=== PATIENT | male | born 1965 | race Caucasian/White ===

== ENCOUNTER 2019-02-06 10:49 | Emergency (ER) | payer OTHER ==
--- NOTE | 2019-02-06 11:49 | ED ---
General Adult HPI <Jose Haile - Last Filed: 02/06/19 15:32> - General Source: patient, RN notes reviewed Mode of arrival: wheelchair <Jose Neal - Last Filed: 02/06/19 15:42> - General Chief complaint: Psychiatric Symptoms Stated complaint: Mental Health Time Seen by Provider: 02/06/19 11:15 - History of Present Illness Initial comments: Wesly is a 53-year-old male with a past medical history of anxiety, depression, panic disorder, bipolar disorder who presents to the emergency department for a chief complaint of panic attack. Patient states that he was withdrawn yesterday and spent the whole day sleeping. States that this morning he started to feel anxious and started to have a panic attack. Patient did take his prescribed Xanax but this did not help. Panic attack eventually subsided however patient wanted to be evaluated. States that over the past 2 months he has been very anxious and has had decreased stability in his life. Patient states his son recently moved in with him and has been stressful. States that he does not feel his medications are controlling his bipolar disorder because of the instability in his life now. He is denying any suicidal thoughts or thoughts of harming himself. Patient has no other complaints at this time including shortness of breath, chest pain, abdominal pain, nausea or vomiting, headache, or visual changes. (Jose Neal) - Related Data Home Medications Medication Instructions Recorded Confirmed ALPRAZolam [Xanax] 1 mg PO TID PRN 02/06/19 02/06/19 Aspirin EC [Ecotrin Low Dose] 81 mg PO DAILY 02/06/19 02/06/19 HYDROcodone/APAP 7.5-325MG [[place] 1 tab PO DAILY PRN 02/06/19 02/06/19 7.5-325] Loratadine [Claritin] 10 mg PO DAILY 02/06/19 02/06/19 Losartan/Hydrochlorothiazide 1 tab PO DAILY 02/06/19 02/06/19 [Losartan-Hctz 100-25 mg Tab] Multivitamins, Thera [Multivitamin 1 tab PO DAILY 02/06/19 02/06/19 (formulary)] OXcarbazepine 1,200 mg PO BID 02/06/19 02/06/19 [place]-3 Fatty Acids/Fish Oil [Fish 1 cap PO DAILY 02/06/19 02/06/19 Oil 1,000 mg Softgel] Omeprazole 20 mg PO DAILY 02/06/19 02/06/19 Pravastatin Sodium [Pravachol] 40 mg PO HS 02/06/19 02/06/19 Pregabalin [Lyrica] 75 mg PO TID 02/06/19 02/06/19 Venlafaxine HCl ER [Effexor Xr] 300 mg PO DAILY 02/06/19 02/06/19 traZODone HCL [Desyrel] 100 mg PO HS 02/06/19 02/06/19 Allergies Allergy/AdvReac Type Severity Reaction Status Date / Time No Known Allergies Allergy Verified 02/06/19 11:46 Review of Systems ROS Other: All systems not noted in ROS Statement are negative. <Jose Haile - Last Filed: 02/06/19 15:32> ROS Other: All systems not noted in ROS Statement are negative. <Jose Neal - Last Filed: 02/06/19 15:42> ROS Statement: Those systems with pertinent positive or pertinent negative responses have been documented in the HPI. Past Medical History History of Any Multi-Drug Resistant Organisms: MRSA Date of last positivie culture/infection: 2016 - neck Additional Past Surgical History / Comment(s): cervical fusion, back fusion, lamenectomy Past Psychological History: Anxiety, Bipolar, Depression, Panic Disorder Smoking Status: Current every day smoker Past Alcohol Use History: Daily Past Drug Use History: Marijuana <Jose Neal - Last Filed: 02/06/19 15:42> General Exam General appearance: alert, in no apparent distress (Patient does become tearful at times) Head exam: Present: atraumatic, normocephalic, normal inspection Eye exam: Present: normal appearance, PERRL, EOMI. Absent: scleral icterus, conjunctival injection, periorbital swelling ENT exam: Present: normal exam, mucous membranes moist Neck exam: Present: normal inspection, full ROM. Absent: tenderness, meningismus, lymphadenopathy Respiratory exam: Present: normal lung sounds bilaterally. Absent: respiratory distress, wheezes, rales, rhonchi, stridor Cardiovascular Exam: Present: regular rate, normal rhythm, normal heart sounds. Absent: systolic murmur, diastolic murmur, rubs, gallop, clicks GI/Abdominal exam: Present: soft, normal bowel sounds. Absent: distended, tenderness, guarding, rebound, rigid Neurological exam: Present: alert, oriented X3, CN II-XII intact Psychiatric exam: Present: manic. Absent: agitated <Jose Neal - Last Filed: 02/06/19 15:42> Course <Jose Haile - Last Filed: 02/06/19 15:32> Vital Signs 02/06/19 10:57 Temperature 98.6 F Pulse Rate 61 Respiratory 20 Rate Blood Pressure 130/85 O2 Sat by Pulse 95 Oximetry - Reevaluation(s) Reevaluation #1: 02/06/19 15:33 PA supervision: I personally did evaluate this case and do agree with the assessment and plan. (Jose Haile) Medical Decision Making <Jose Neal - Last Filed: 02/06/19 15:42> - Medical Decision Making Wesly is a 53-year-old male with a past medical history of anxiety depression and bipolar disorder who presents for anxiety. Patient had a panic attack earlier today. States his life has been very unstable since his son has moved back in with him 2 months ago. States that he feels his medications are not working although he is taking them. He is denying any suicidal or homicidal thoughts. He was evaluated by EPS who recommended outpatient treatment. Patient will follow up with his therapist and mobile crisis unit. Patient is agreeable to this. He will return here if he has any worsening symptoms or thoughts of suicide. (Jose Neal) - Lab Data Lab Results 02/06/19 Range/Units 11:30 Urine Opiates Screen Not Detected (NotDetected) Ur Oxycodone Screen Not Detected (NotDetected) Urine Methadone Screen Not Detected (NotDetected) Ur Propoxyphene Screen Not Detected (NotDetected) Ur Barbiturates Screen Not Detected (NotDetected) U Tricyclic Antidepress Not Detected (NotDetected) Ur Phencyclidine Scrn Detected H (NotDetected) Ur Amphetamines Screen Not Detected (NotDetected) U Methamphetamines Scrn Not Detected (NotDetected) U Benzodiazepines Scrn Detected H (NotDetected) Urine Cocaine Screen Not Detected (NotDetected) U Marijuana (THC) Screen Detected H (NotDetected) Disposition <Jose Haile - Last Filed: 02/06/19 15:32> Is patient prescribed a controlled substance at d/c from ED?: No Time of Disposition: 15:41 <Jose Neal - Last Filed: 02/06/19 15:42> Clinical Impression: Acute anxiety, Adjustment reaction Disposition: HOME SELF-CARE Condition: Good Instructions (If sedation given, give patient instructions): Generalized Anxiety Disorder (ED) Additional Instructions: Please follow up with primary care in 1-2 days. Please return here to the emergency department if you have any worsening symptoms. Referrals: Eduardo Montalvo MD [Primary Care Provider] - 1-2 days
[2019-02-06 12:29] LABS: Amphetamine Screen,Urine Not Detected (NotDetected); Barbiturate Screen,Urine Not Detected (NotDetected); Benzodiazepines Screen,Urine Detected (NotDetected); Cocaine Screen,Urine Not Detected (NotDetected); Methadone Screen, Urine Not Detected (NotDetected); Opiate Screen,Urine Not Detected (NotDetected); Oxycodone Screen, Urine Not Detected (NotDetected); Phencyclidine Screen,Urine Detected (NotDetected); Tricyclic Antidepressant,Urine Not Detected (NotDetected); Urn Cannabinoid Scrn Detected (NotDetected)
[2019-02-06 15:58] VITALS: RESP 16
[2019-02-06 16:00] VITALS: BP 132/78; PULSE 68; TEMP 98.6
== END 2019-02-06 15:58 | disposition home or self-care (01) ==
LOC: EC 10:49
DX: F43.20 Adjustment disorder, unspecified (principal); F41.0 Panic disorder [episodic paroxysmal anxiety]; F31.9 Bipolar disorder, unspecified; F17.200 Nicotine dependence, unspecified, uncomplicated; Z86.14 Personal history of Methicillin resistant Staphylococcus aureus infection; Z79.82 Long term (current) use of aspirin; Z79.899 Other long term (current) drug therapy; Z98.1 Arthrodesis status
CPT/HCPCS: 80306; 82075; 99284

== ENCOUNTER → 2021-02-01 | Outpatient (CLI) | payer OTHER | END | disposition home or self-care (01) | CPT/HCPCS: 36415; 80051; 82565; 84520; 85027 ==

== ENCOUNTER 2021-02-02 07:59 | Day surgery (SDC) | payer OTHER ==
[2021-02-01 11:52] VITALS: BMI 24.3
[~2021-02-02 07:59] MED LIST: SODIUM CHLORIDE 0.9% 1,000 ML IV SCH
[2021-02-02 08:37] VITALS: TEMP 97.6
[2021-02-02] MEDS ORDERED: PROPOFOL 10 MG/ML 20 ML VIAL IV ONE (08:55)
[2021-02-02 11:22] VITALS: BP 121/85; PULSE 73; RESP 16
--- NOTE | 2021-02-02 17:54 | PCN ---
PROCEDURE NOTE DATE OF SERVICE: 02/02/2021 PROCEDURE: Electrical cardioversion. INDICATION: Persistent atrial fibrillation. CLINICAL INFORMATION: Mr. Phillips is a 55-year-old gentleman with noncritical CAD, who developed recent onset persistent atrial fib, unresponsive to pharmacological efforts. He was brought in for electrical cardioversion after dual anticoagulation. PROCEDURE NOTE: Under the influence of ultra short-acting intravenous anesthetic agent with the attendance of the anesthesiologist, a single 250 joule shock was delivered to the chest wall with anterior and posterior patches. Patient converted to sinus rhythm and had frequent PACs. He was neurologically intact, hemodynamically stable. This was a successful procedure with frequent PACs. The details were discussed with the patient as well as his mother. I expect him to be discharged in the next few hours and I will see him in the office within a week. CIRA / ROBERT: [id number] /
== END 2021-02-02 11:27 | disposition home or self-care (01) ==
LOC: CATHCVL 07:59
PROVIDERS: ATTEND Internal Medicine Interventional Cardiology
DX: I48.19 Other persistent atrial fibrillation (principal); I25.10 Atherosclerotic heart disease of native coronary artery without angina pectoris; F31.9 Bipolar disorder, unspecified; Z79.01 Long term (current) use of anticoagulants; I10 Essential (primary) hypertension; E78.2 Mixed hyperlipidemia; Z82.49 Family history of ischemic heart disease and other diseases of the circulatory system; Z79.1 Long term (current) use of non-steroidal anti-inflammatories (NSAID); Z79.899 Other long term (current) drug therapy
CPT/HCPCS: 92960; J2704

== ENCOUNTER → 2021-02-07 | Outpatient (CLI) | payer OTHER ==
[2021-02-08 02:53] LABS: African American GFR (CKD) 109.5 (60.0-200.0); Anion Gap 9.7 mmol/L (4.00-12.00); BUN/Creat Ratio 23.33 Ratio (12.00-20.00); Calcium 8.6 mg/dL (8.7-10.3); Carbon Dioxide 30.3 mmol/L (21.6-31.8); Magnesium 1.7 mg/dL (1.5-2.4); Non-African American GFR(CKD) 94.5 (60.0-200.0); Potassium 3.6 mmol/L (3.5-5.5)
== END | disposition home or self-care (01) ==
LOC: LABWHC1 16:28
PROVIDERS: ATTEND Internal Medicine Interventional Cardiology
DX: I48.91 Unspecified atrial fibrillation (principal); I10 Essential (primary) hypertension
CPT/HCPCS: 36415; 80048; 83735

== ENCOUNTER 2022-08-11 07:11 | Day surgery (SDC) | payer OTHER ==
[2022-08-10 09:38] VITALS: BMI 25.2
[~2022-08-11 07:11] MED LIST changes: +ALPRAZolam 0.25 MG TAB PO PRN; +ALPRAZolam 0.5 MG TAB PO PRN; +ASPIRIN 325 MG TAB PO STA; +NITROGLYCERIN SL TABS 0.4 MG TAB SUBLINGUAL PRN; -SODIUM CHLORIDE 0.9% 1,000 ML IV SCH; +SODIUM CHLORIDE 0.9% 1,000 ML in EMPTY BAG 1 BAG IV SCH
[2022-08-11] MEDS ORDERED: SODIUM CHLORIDE 0.9% 500 ML 500 ML IV ONE (07:30)
[2022-08-11 07:41] VITALS: RESP 16; TEMP 97.2
[2022-08-11 08:18] LABS: Calcium 9.2 mg/dL (8.4-10.2); Potassium 4.4 mmol/L (3.5-5.1)
[2022-08-11] MEDS ORDERED: ePHEDrine 50 MG/ML 1 ML VIAL ONE (08:59)
[2022-08-11] MEDS ORDERED: PROPOFOL 10 MG/ML 20 ML VIAL IV ONE (08:59)
[2022-08-11] MEDS ORDERED: hydrOXYzine HCL 25 MG TAB PO PRN (09:21)
[2022-08-11] MEDS ORDERED: IBUPROFEN 800 MG TAB PO PRN (09:21)
[2022-08-11] MEDS ORDERED: SODIUM CHLORIDE 0.9% 1,000 ML IV ONE (09:21)
[2022-08-11 11:02] VITALS: BP 127/76; PULSE 67
--- NOTE | 2022-08-11 12:41 | CE ---
CARDIAC ELECTROPHYSIOLOGY REPORT PROCEDURE PERFORMED: Electrical cardioversion. INDICATION: Persistent atrial fibrillation. The patient was brought in for electrical cardioversion because of persistent atrial fibrillation. He has hypertension, bipolar disorder, hyperlipidemia, alcohol abuse and marijuana abuse in the past. The patient after he came here became somewhat vasovagal requiring IV fluids. His heart rate was in the 40s. Blood pressure was in the 70s systolic. He improved with IV fluids and then electrical cardioversion was performed. With the attendance of the anesthesiologist, 2 shocks were given, first was 100 joules with anterior and posterior patches. He did not convert to sinus rhythm. Repeat shock was given at 200 joules. He converted to sinus rhythm. He remained hemodynamically stable and neurologically intact. This was a successful electrical cardioversion. The patient will be discharged later on today and I will see him in the office next week. Upon discharge, he will take amiodarone only 200 mg daily. He will discontinue hydrochlorothiazide. Decrease the Lasix to 20 mg daily and losartan will be 100 mg daily from tomorrow and metoprolol tartrate will be 25 mg b.i.d. He will continue Xarelto without interruption. I will see him in the office next week. MMODL / IJN: [id number] /
[2022-08-11] MEDS ORDERED: QUEtiapine 200 MG TAB PO SCH (21:00)
[2022-08-11] MEDS ORDERED: RIVAROXABAN 20 MG TAB PO SCH (21:00)
[2022-08-11] MEDS ORDERED: METOPROLOL TARTRATE 25 MG TAB PO SCH (21:00)
[2022-08-12] MEDS ORDERED: AMIODARONE 100 MG TAB PO SCH (09:00)
[2022-08-12] MEDS ORDERED: LYCOP PO SCH (09:00)
[2022-08-12] MEDS ORDERED: LOSARTAN 50 MG TAB PO SCH (09:00)
[2022-08-12] MEDS ORDERED: NON FORMULARY DRUG (Omega-3/Dha/Epa/Fish Oil [Fish Oil 1,000 Mg Softgel] 1 EACH Capsule) PO SCH (09:00)
[2022-08-12] MEDS ORDERED: VIT K PO SCH (09:00)
[2022-08-12] MEDS ORDERED: FUROSEMIDE 20 MG TAB PO SCH (09:00)
[2022-08-12] MEDS ORDERED: FOLIC PO SCH (09:00)
[2022-08-12] MEDS ORDERED: LORATADINE 10 MG TAB PO SCH (09:00)
[2022-08-12] MEDS ORDERED: MULTIVIT MIN PO SCH (09:00)
[2022-08-12] MEDS ORDERED: NON FORMULARY DRUG (Losartan Potassium [Cozaar] 100 MG Tablet) PO SCH (09:00)
[2022-08-12] MEDS ORDERED: [UNRECOGNIZED DRUG - OTHER] PO SCH (09:00)
== END 2022-08-11 10:53 | disposition home or self-care (01) ==
LOC: CATHCVL 07:11
PROVIDERS: ATTEND Internal Medicine Interventional Cardiology
DX: I48.19 Other persistent atrial fibrillation (principal); I10 Essential (primary) hypertension; E78.5 Hyperlipidemia, unspecified; F12.90 Cannabis use, unspecified, uncomplicated; Z79.01 Long term (current) use of anticoagulants; F31.9 Bipolar disorder, unspecified
CPT/HCPCS: 80048; 92960; J2704

== ENCOUNTER → 2024-04-15 | Outpatient (CLI) | payer OTHER ==
[2024-04-15 13:32] VITALS: BP 87/58; PULSE 52; RESP 16; TEMP 97.9
--- NOTE | 2024-04-15 14:05 | P.SLEEP ---
History of Present Illness H&P Date: 04/15/24 58-year-old male patient referred to me for sleep apnea evaluation. The patient suffers from chronic A-fib and he has cardiomyopathy with an ejection fraction of 45%. The patient has been [facility]. He has previous history of alcoholism, hypertension and bipolar disorder. Most recent echocardiogram also showed some mild aortic stenosis. He has not drank for around few years and the patient has been essentially alcohol free. There is a concern for this patient having obstructive sleep apnea. After he quit drinking alcohol, his snoring severity improved. He denies waking up choking and gasping for air. He goes to bed around 9 PM and wakes up 6 AM in the morning. 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 Following the meeting, he feels drowsy and somewhat sleepy and he may take a nap in the early afternoon. His current [place] score is at 9. No recent weight gain. No nighttime chest pain or shortness of breath or hear tburn. He wakes up few times in middle of night for urination. No reports grinding of the teeth. No sleepwalking or sleep talking. He is a mouth breather. He smokes marijuana for recreational purposes. His mother has obstructive sleep apnea. No history of any motor vehicle accidents because of feeling drowsy or sleepy. His current [place] score is at 9. He remains atrial fibrillation. He is taking anticoagulation with Xarelto. Review of Systems Constitutional: Reports daytime sleepiness, Reports fatigue Eyes: denies as per HPI, denies blurred vision, denies bulging eye, denies decreased vision, denies diplopia, denies discharge, denies dry eye, denies irritation, denies itching, denies pain, denies photophobia, denies loss of peripheral vision, denies loss of vision, denies tunnel vision/blind spots Ears: deny: decreased hearing, ear discharge, earache, tinnitus Ears, nose, mouth and throat: Reports as per HPI Breasts: absent: as per HPI, gynecomastia Cardiovascular: Reports as per HPI, Reports irregular heart beat Respiratory: Reports snoring Gastrointestinal: Reports as per HPI Genitourinary: Reports as per HPI Musculoskeletal: Reports as per HPI Musculoskeletal: absent: ankle pain, ankle stiffness, ankle swelling, as per HPI, elbow pain, elbow stiffness, elbow swelling, foot pain, foot stiffness, foot swelling, hand pain, hand stiffness, hand swelling, hip pain, hip stiffness, hip swelling, knee pain, knee stiffness, knee swelling, shoulder pain, shoulder stiffness, shoulder swelling, wrist pain, wrist stiffness, wrist swelling Integumentary: Reports as per HPI Neurological: Reports as per HPI Psychiatric: Reports anxiety, Reports depression (Bipolar disorder), Reports hypersomnia, Reports sleep disturbances Endocrine: Reports as per HPI, Reports fatigue Hematologic/Lymphatic: Reports as per HPI Allergic/Immunologic: Reports as per HPI Past Medical History Past Medical History: Atrial Fibrillation, Chest Pain / Angina, Heart Failure (Mild systolic heart failure with ejection fraction of 45%), GERD/Reflux, Hyperlipidemia, Hypertension, Osteoarthritis (OA) Additional Past Medical History / Comment(s): See Dr Bauer's H&P. "Borderline Asthma", seasonal allergies, IBS, SOB, hx sepsis due to post-op infection after neck surgery, chronic back pain. History of Any Multi-Drug Resistant Organisms: MRSA Date of last positivie culture/infection: 2015 - neck MDRO Source:: neck Past Surgical History: Heart Catheterization Additional Past Surgical History / Comment(s): Cervical fusion, back fusion, laminectomy, elbow surgery, carpal tunnel, cardioversion. Past Anesthesia/Blood Transfusion Reactions: No Reported Reaction Additional Past Anesthesia/Blood Transfusion Reaction / Comment(s): "Need fair amount of anesthesia to put me out." Past Psychological History: Anxiety, Bipolar, Depression Smoking Status: Never smoker Past Alcohol Use History: Daily Additional Past Alcohol Use History / Comment(s): Used to drink bourbon - 2 -3 daily, no alcohol since April 2022. Past Drug Use History: Marijuana Additional Drug Use History / Comment(s): Marijuana/CBD use for pain. Aware no use 24 hrs prior to procedure. - Past Family History Mother Family Medical History: No Reported History, Coronary Artery Disease (CAD), Hypertension, Sleep Apnea/CPAP/BIPAP Father Family Medical History: Coronary Artery Disease (CAD) Medications and Allergies Home Medications Medication Instructions Recorded Confirmed Type ALPRAZolam [Xanax] 1 mg PO TID PRN 02/06/19 08/10/22 History Loratadine [Claritin] 10 mg PO DAILY 02/06/19 08/11/22 History Furosemide [Lasix] 20 mg PO DAILY 02/01/21 08/11/22 History Ibuprofen 800 mg PO Q8H PRN 02/01/21 08/11/22 History Losartan Potassium [Cozaar] 100 mg PO DAILY 02/01/21 08/11/22 History Multivit-Min/Folic/Vit K/Lycop 1 each PO DAILY 02/01/21 08/11/22 History [Men's Multivitamin Tablet] Rivaroxaban [Xarelto] 20 mg PO HS 02/01/21 08/11/22 History Metoprolol Tartrate [Lopressor] 25 mg PO BID 04/20/22 08/11/22 History Amiodarone [Cordarone] 200 mg PO DAILY 08/10/22 08/11/22 History [place]-3/Dha/Epa/Fish Oil [Fish Oil 1 each PO DAILY 08/10/22 08/11/22 History 1,000 mg Softgel] QUEtiapine [SEROquel] 200 mg PO HS 08/10/22 08/11/22 History hydrOXYzine HCL [Hydroxyzine HCl] 25 mg PO DIRECTED PRN 08/10/22 08/11/22 History Acetaminophen [Tylenol Extra 1,000 mg PO DAILY 04/15/24 04/15/24 History Strength] FLUoxetine HCL [PROzac] 20 mg PO DAILY 04/15/24 04/15/24 History Pregabalin [Lyrica] 100 mg PO DAILY 04/15/24 04/15/24 History Terbinafine [LamISIL] 250 mg PO DAILY 04/15/24 04/15/24 History Allergies Allergy/AdvReac Type Severity Reaction Status Date / Time No Known Allergies Allergy Verified 08/11/22 07:25 Physical Exam Vitals: Vital Signs Temp Pulse Resp BP Pulse Ox 04/15/24 13:30 97.9 F 52 L 16 87/58 96 Intake and Output 04/14/24 04/15/24 04/15/24 22:59 06:59 14:59 Other: Weight 99.79 kg The patient appeared well nourished and normally developed. Vital signs as documented. Head exam is unremarkable. No scleral icterus or corneal arcus noted. Neck is without jugular venous distension, thyromegaly, or carotid bruits. Carotid upstrokes are brisk bilaterally. The patient has a Mallampati class IV with significant crowding of the posterior pharynx. Lungs are clear to auscultation and percussion. Cardiac exam reveals the PMI to be normally sized and situated. Rhythm is regular. First and second heart sounds normal. No murmurs, rubs or gallops. Abdominal exam reveals normal bowel sounds, no masses, no organomegaly and no aortic enlargement. Extremities are nonedematous and both femoral and pedal pulses are normal. Examination of the skin revealed no evidence of significant rashes, suspicious appearing nevi or other concerning lesions. Neurologically, the patient is awake and alert and the patient does not have any focal neurological deficit. Cranial nerves are essentially intact. Assessment and Plan Plan: Chronic hypersomnia, current [place] score is at 9, consider underlying possibility of obstructive sleep apnea Loud snoring Sleep fragmentation Chronic A-fib, failed previous cardioversion and the patient is currently on anticoagulation with Xarelto and the patient is on Lopressor for rate control. Chronic systolic heart failure, nonischemic in nature with an ejection fraction of 45% Mild aortic stenosis History of alcoholism Seasonal allergies Irritable bowel syndrome Osteoarthritis Hypertension Hyperlipidemia Plan Will proceed with screening polysomnography and will make further recommendations based on those results. Sleep hygiene measures are adequate. Continue same medication. Will follow. Sleep Note - Sleep Data ESS Total: 9 - Sleep Note Sleep Note: Temperature: 97.9 F Pulse Rate: 52 Respiratory Rate: 16 Blood Pressure: 87/58 SpO2: 96 Height: 6 ft 0.7 in Weight: 99.79 kg BMI: Neck Circumference: 17.2
== END ==
LOC: 3 N SLEEP 13:01
PROVIDERS: ATTEND Internal Medicine Critical Care Medicine
CPT/HCPCS: 99211

== ENCOUNTER 2024-05-12 19:18 | Outpatient (CLI) | payer OTHER ==
--- NOTE | 2024-05-21 21:22 | P.PCN ---
Date of Procedure: 05/12/24 Operative Findings: 58-year-old male patient referred to me for sleep apnea evaluation. The patient suffers from chronic A-fib and he has cardiomyopathy with an ejection fraction of 45%The patient has been followed [facility]. He has previous history of alcoholism, hypertension and bipolar disorder. Most recent echocardiogram also showed some mild aortic stenosis. He has not drank for around few years and the patient has been essentially alcohol free. There is a concern for this patient having obstructive sleep apnea. After he quit drinking alcohol, his snoring severity improved. He denies waking up choking and gasping for air. He goes to bed around 9 PM and wakes up 6 AM in the morning. 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 Following the meeting, he feels drowsy and somewhat sleepy and he may take a nap in the early afternoon. His current [place] score is at 9. No recent weight gain. No nighttime chest pain or shortness of breath or heartburn. He wakes up few times in middle of night for urination. No reports grinding of the teeth. No sleepwalking or sleep talking. He is a mouth breather. He smokes marijuana for recreational purposes. His mother has obstructive sleep apnea. No history of any motor vehicle accidents because of feeling drowsy or sleepy. His current [place] score is at 9. He remains atrial fibrillation. He is taking anticoagulation with Xarelto. Pertinent physical findings Weight is 219 pounds with a BMI of 29.7 Technical description The patient was studied using a standard complex polysomnography protocol that included recording of the Lead II EKG, Central, occipital and frontal EEG, right and left outer canthus EOG, submental EMG, right and left anterior tibialis EMG, respiratory airflow by thermocouple and or pressure/flow transducer, respiratory efforts by abdominal and thoracic PVDF belts, oxygen saturation by cable oximetry. Position by observation synchronized the PSG. Equipment used: [employer]. Sleep architecture The total recording duration was 398.5 minutes. The total sleep time was spent 44.0 minutes. The wake after sleep onset time was 41.5 minutes. The overall sleep efficiency was calculated to be at 86.3%. The latency to sleep onset was 9 minutes and the latest REM sleep was 215 minutes. The sleep architecture was catheterized by 38.2% stage I, 35.3% stage II, 0% stage III, and a total of 26.5% REM sleep. The total arousal index was 57.4 Respiratory arousals The patient had a total of 223 obstructive events of which 0 were obstructive apneas, 1 was mixed apnea and 222 obstructive hypopneas. The resulting AHI was 24.9 consistent with moderate severe BRISA. No central events were normal Oxygenation analysis The patient had a baseline pulse ox of 91% while awake. Lowest oxygen saturation was 75%. The patient spent approximately 1 hours and 7 minutes of sleep time below pulse ox of 89%. Minimum pulse ox during REM sleep was 75% Sleep continuity summary The patient had a total of 329 arousals with an arousal index of 57.4. The respiratory arousal index was 24.6 Periodic limb movement activity A total of 210. Regular movement activity will counted with an index of 36.6. There was only 2. Regular movement activity with arousals with an index of 0.3 Cardiac summary Average heart rate was 45 with a minimum heart rate of 79 and a maximum heart of 52. Rhythm is sinus with occasional premature atrial beats. Assessment Obstructive sleep apnea, moderate in severity with an AHI of 24.9 nocturnal oxygen saturations Nocturnal oxygen desaturations, with a minimum pulse ox of 75% chronic hypersomnia Sleep fragmentation with excessive arousals part related to obstructive sleep apnea Periodic limb movement activity, not associated with arousals Abnormal sleep architecture with overexpression of stage I sleep Sleep fragmentation Chronic A-fib, failed previous cardioversion and the patient is currently on anticoagulation with Xarelto and the patient is on Lopressor for rate control. Chronic systolic heart failure, nonischemic in nature with an ejection fraction of 45% Mild aortic stenosis History of alcoholism Seasonal allergies Irritable bowel syndrome Osteoarthritis Hypertension Hyperlipidemia Plan Will proceed with CPAP titration to eliminate obstructive respiratory events. Of interest will be the assessment of the patient's overall sleep efficiency and maintenance while being on CPAP therapy. Anticipate improvement in the overall nocturnal arousals while being on CPAP therapy. Sleep hygiene measures are adequate.
== END 2024-05-13 05:36 | disposition home or self-care (01) ==
LOC: 3 N SLEEP 19:18
PROVIDERS: ATTEND Internal Medicine Critical Care Medicine
DX: G47.33 Obstructive sleep apnea (adult) (pediatric) (principal); G47.36 Sleep related hypoventilation in conditions classified elsewhere; G47.10 Hypersomnia, unspecified; G47.61 Periodic limb movement disorder; I48.20 Chronic atrial fibrillation, unspecified; I11.0 Hypertensive heart disease with heart failure; I50.22 Chronic systolic (congestive) heart failure; I35.0 Nonrheumatic aortic (valve) stenosis; E78.5 Hyperlipidemia, unspecified; K58.9 Irritable bowel syndrome, unspecified; M19.90 Unspecified osteoarthritis, unspecified site; F17.200 Nicotine dependence, unspecified, uncomplicated; Z79.01 Long term (current) use of anticoagulants; Z79.899 Other long term (current) drug therapy
CPT/HCPCS: 95810